=== PATIENT | female | born 1960 | race Caucasian/White ===

== ENCOUNTER 2017-07-09 04:00 | Inpatient (IN) | payer MEDICAID ==
[2017-07-09] VITALS (13 sets, daily range): BP systolic 72–183; BP diastolic 48–104; PULSE 86–108; RESP 20–36; O2SAT 90–98
[~2017-07-09] VITALS: Ht 152.4 cm; Wt 36.0 kg
--- NOTE | 2017-07-09 04:04 | ED.REPORT ---
HPI-Altered Mental Status Date of Service Jul 09, 2017 ED Provider: Ben Muniz MD Patient is a 56 year old female who presents to the ED via EMS after decreased level of consciousness with a last known normal at 2100 this evening. Per EMS, the patient has had slurred speech and was agitated. The patient's son in law denied alcohol use. Unable to obtain history due to patient's mental status. Nursing Notes Stated Complaint: DECREASED LOC Nursing Notes Reviewed: Yes General Time Seen by MD: 04:00 Chief Complaint Decreased alertness Hx Obtained From: EMS Unable to Obtain Hx: Patient condition, Mental status Arrived By: Ambulance Sudden in Onset?: Yes Onset Occurred: 1 - 4 hours ago Symptom Duration: Since onset Past Medical History Ambulatory Status Independent Review of Systems Unable to Obtain ROS Patient condition, Mental status Neurologic: Reports: Change LOC, Slurred speech Psychiatric: Reports: Agitation Complete sys rev & neg: except as marked. Physical Exam Physical Exam Notes: Limited exam due to patient's inability to participate Initial Vital Signs Vital Signs (First) Date Time Temp Pulse Resp B/P Pulse Ox O2 Delivery O2 Flow Rate FiO2 07/09/17 04:00 36.0 101 22 165/100 94 Room Air Initial VS: Reviewed, Vital signs abnormal Alertness: Positive: Somnolent Head / Eyes: Atraumatic, Normocephalic pinpoint pupils Neck: Atraumatic, Supple Respiratory / Chest: Atraumatic, No respiratory distress Heart Rate / Rhythm: Positive: Tachycardia Mental Status: Positive: Somnolent Skin: Warm, Dry Interpretation & Diagnostics Lab Results Interpretation Result Diagram: 07/09/17 0420 07/09/17 0420 Test 07/09/17 04:20 07/09/17 05:25 White Blood Count 11.7th/mm3 (3.8-10.1) Red Blood Count 4.66mil/mm3 (3.90-5.20) Hemoglobin 14.4g/dL (12.0-15.6) Hematocrit 42.0% (35.0-46.0) Mean Corpuscular Volume 90.1fL (81-100) Mean Corpuscular Hemoglobin 30.9pg (27.0-35.0) Mean Corpuscular Hemoglobin Concent 34.3% (32.0-37.0) Red Cell Distribution Width 13.4% (12.3-15.4) Platelet Count 304bil/L (150-400) Neutrophils (%) (Auto) 74.8% (40-74) Lymphocytes (%) (Auto) 16.1% (14-46) Monocytes (%) (Auto) 6.2% (4-12) Eosinophils (%) (Auto) 2.4% (0-5) Basophils (%) (Auto) 0.3% (0-3) Sodium Level 139mEq/L (134-144) Potassium Level 4.1mEq/L (3.5-5.2) Chloride Level 100mEq/L (97-108) Carbon Dioxide Level 21mmol/L (18-29) Blood Urea Nitrogen 13mg/dL (6-24) Creatinine 0.46mg/dL (0.57-1.00) Estimat Glomerular Filtration Rate 200mL/min (>59) Glucose Level 139mg/dL (60-99) Lactic Acid Level 0.8mmol/L (0.4-2.0) Calcium Level 9.2mg/dL (8.5-10.1) Magnesium Level 2.1mg/dL (1.6-2.6) Total Bilirubin 0.3mg/dL (0.0-1.2) Aspartate Amino Transf (AST/SGOT) 18U/L (0-50) Alanine Aminotransferase (ALT/SGPT) 10U/L (0-32) Alkaline Phosphatase 87U/L (25-150) Total Protein 8.5g/dL (6.4-8.4) Albumin 4.3g/dL (3.4-5.0) Salicylates Level 3.0ug/mL (30-250) Acetaminophen Level 15.0ug/mL Rx (10-25) Alcohols < 10mg/dL (0-10) Urine Color Straw (YELLOW) Urine Appearance Clear (CLEAR,HAZY) Urine pH 7.5 (5.0-8.0) Urine Specific [place] 1.010 (1.003-1.035) Urine Protein Negativemg/dL (NEG,TRACE) Urine Glucose (UA) Negativemg/dL (NEGATIVE) Urine Ketones Negativemg/dL (NEGATIVE) Urine Occult Blood Negative (NEGATIVE) Urine Nitrite Negative (NEGATIVE) Urine Bilirubin Negative (NEGATIVE) Urine Urobilinogen Normalmg/dL (NORMAL) Urine Leukocyte Esterase Negative (NEGATIVE) Urine RBC 0-2/hpf (0-2) Urine WBC 0-5/hpf (0-5) Urine Epithelial Cells Occasional/hpf (NONE-MOD) Urine Crystals Amorphous phosphates Urine Bacteria Few/hpf (NONE-FEW) Urine Hyaline Casts None/lpf (NONE) Urine Granular Casts None seen (NONE SEEN) Urine Waxy Casts None seen (NONE SEEN) Urine Red Blood Cell Casts None seen (NONE SEEN) Urine White Blood Cell Casts None seen (NONE SEEN) Urine Mucus None seen (None Seen) Urine Trichomonas None seen (NONE SEEN) Urine Yeast None (NONE SEEN) Urinalysis Comment None Urine Culture Reflexed Not indicated Lab Results Interpretation: urine tox: positive for benzodiazepines, THC and oxycodone Mildly elevated blood count ECG Interpretation Time: 04:08 Interpreted by: ED physician Abnormal Rate: 100 (104) Rhythm / Conduction: Tachycardia X-Ray Chest Interpretation Chest Xray Interpretation: no acute findings View: Portable, 1 view Interpretation / Wet Read by: Wet read ED physician CT Head Interpretation IMPRESSION: No acute intracranial findings. at 0505 Interpretation / Wet Read by: Interpret - Radiologist Re-Eval/Medical Decision Med Decision/Clinical Course 56-year-old female who was found down on the kitchen floor by her son-in-law during the night. There was no concern for illicit drug use or alcohol by the family. She is on sedating medications to include opiates and gabapentin. It is not known whether she took extra of those. There is no evidence of trauma on physical exam but obviously there is concern for head trauma as a cause of the altered level of consciousness. She has not had any hypotension or respiratory distress. Evaluation was initiated with IV access and laboratory draw. CT scan was felt immediately necessary but she remained a bit too agitated for that. She was given Versed 2 mg 2 doses with good quieting of her activity and CT scan was obtained successfully and was negative. She had some hypotension into the 80s shortly after the CT scan and her pupils were pinpoint. There still was no respiratory distress or desaturation. She was given Narcan 0.4 mg IV 2 doses with change in the pupils to mid position. Her blood pressure came up to the 140 systolic range and she was a little more activity without being agitated. Her urine drug screen showed benzos, THC, and oxycodone. We do not test for gabapentin. Her labs showed a acetaminophen level of 15. She continues the present time to maintain stable vital signs and level of consciousness. The most likely scenario is that she overused her medications to include the oxycodone, benzodiazepines (diazepam identified from the [facility] [employer]) and gabapentin. She will be admitted to the hospitalist service to the CCU for further evaluation and treatment. Consultation : Consulted With: Hospitalist Primary Care Md: Agrees with eval, Agrees with plan, Accepts admit Counseled Regarding: Diagnosis, Lab results, Need for admission Patient Discharge & Departure Impression: Primary Impression: Mental status, decreased Additional Impression: Opiate overdose Encounter type: initial encounter Injury intent: accidental or unintentional Qualified Code: T40.601A - Poisoning by unspecified narcotics, accidental (unintentional), initial encounter Disposition: ADMITTED TO HOSPITAL Discharge Condition All VS Reviewed: Yes Condition: Stable Referrals: Nik Ram MD (PCP) Crit Care Except Billable Proc Time Spent: 75-104 minutes Services Performed: Patient management by me, Time spent at bedside, Reviewing test results, Reviewing imaging, Discussing patient care, Documentation in record, Time with fam/surrogate Critical Care Notes: Polydrug overdose with unstable vital signs necessitating resuscitation and admission to the ICU. Scribe Attestation Portions of this note were transcribed by Katie Bergman. I, Dr. Muniz personally performed the history, physical exam and medical decision-making; I reviewed and confirmed the accuracy of the information in the transcribed note. Signed by Claus Arreguin, 07/09/17 copies to: Nik Ram MD, Howard L MD Jul 09, 2017 04:03 Jelena Bergman Jul 09, 2017 04:13
[2017-07-09 04:31] LABS: BASOPHILS % (AUTO) 0.3 % (0-3); EOSINOPHILS % (AUTO) 2.4 % (0-5); MONOCYTES % (AUTO) 6.2 % (4-12); Mean Corpuscular Hemoglobin 30.9 pg (27.0-35.0); Mean Corpuscular Volume 90.1 fL (81-100); NEUTROPHILS % (AUTO) 74.8 % (40-74); Platelet Count 304 bil/L (150-400)
[2017-07-09 05:25] LABS: Magnesium 2.1 mg/dL (1.6-2.6)
[2017-07-09 05:34] LABS: APPEARANCE,URINE CLEAR (CLEAR,HAZY); COLOR,URINE STRAW (YELLOW); OCCULT BLOOD,URINE NEGATIVE (NEGATIVE); PH,URINE 7.5 (5.0-8.0)
[2017-07-09 05:35] LABS: UROBILINOGEN,URINE NORMAL (NORMAL)
[2017-07-09] MEDS ORDERED: Ondansetron 2 mg/mL 2 mL Inj IVPUSH PRN ×2 (07:05→08:10)
[2017-07-09] MEDS: Dextrose 5% 0.45% NaCl 1,000 ML IV SCH ×3 (07:05→23:45)
--- NOTE | 2017-07-09 07:58 | DRSVH ---
PROCEDURE: CT BRAIN WITHOUT CONTRAST ([id number]) INDICATIONS: decreased LOC TECHNIQUE: Noncontrast 4.5 mm thick angled axial sections acquired from the foramen magnum to the vertex, with c oronal reformats. COMPARISON: None. FINDINGS: Image quality: Moderate, because of patient motion some detail is lost CSF spaces: Basal cisterns are patent. No extra-axial fluid collections. Ventricles are normal in size and shape. Brain: No midline shift. No intracranial masses or hemorrhage. Estrella-white matter interface is norm al. Skull and face: Calvarium and visualized facial bones are intact, without suspicious lesions. Sinuses: Visualized sinuses and mastoids are clear. IMPRESSION: No acute intracranial findings. Dictated by: Eliseo Medina M.D. on 07/09/2017 at 7:55 Approved by: Eliseo Medina M.D. on 07/09/2017 at 7:56 this report corresponds to the findings of the preliminary NSR report.
[2017-07-09] MEDS ORDERED: Senna-Docusate 8.6-50 mg Tablet PO PRN (08:10)
[2017-07-09] MEDS ORDERED: Polyethylene Glycol (PEG) 17 Gm Powder PO PRN (08:10)
[2017-07-09] MEDS ORDERED: Alum-Mag Hydrox-Simeth 30 mL Suspension PO PRN (08:10)
--- NOTE | 2017-07-09 08:49 | DRSVH ---
PROCEDURE: X-RAY CHEST ONE VIEW, PORTABLE ([id number]) INDICATIONS: decreased level of consciousness TECHNIQUE: One view of the chest was acquired. COMPARISON: SKYLAR [facility]ales, CHEST 2VW, 12/10/2012, 18:40. FINDINGS: Surgical changes and devices: Right midlung funmi are seen. Lungs and pleura: No pleural effusions or pneumothorax. No focal infiltrates are seen. Pulmonary p arenchymal coarsening can be seen. Mediastinum: Mediastinal contours appear normal. Heart size is normal. Bones and chest wall: Age-appropriate bony degenerative changes are seen. Mild levoconvex scoliotic curvature is noted. No suspicious bony lesions. Overlying soft tissues appear unremarkable. IMPRESSION: No acute cardiopulmonary process is seen. Postoperative change of the right midlung. Dictated by: Tom Zheng M.D. on 07/09/2017 at 8:46 Approved by: Tom Zheng M.D. on 07/09/2017 at 8:47
[2017-07-09] MEDS: Heparin 5,000 Unit/mL Inj SUBQ SCH ×3 (09:27→22:57)
[2017-07-09] MEDS: 0.9% Sodium Chloride 1,000 ML IV SCH ×3 (09:28→22:56)
--- NOTE | 2017-07-09 09:49 | NUR ---
Nursing Admission. From ED to CCU #2012 at 0730 via gurney, no family at bedside. Impulsive, combative, with completely garbled speech. Blood pressures continue to be labile, and highly variable. Placed on 1L/NC 02 with good effect for RA sats of 90-91%. Does not appears short of breath, but respiratory rate is variable from 24-36, respirations shallow. No cough noted. Voiding using bedpan with assist. Family arrived, updated, appear supportive. Calm and sleeping at this time.
[2017-07-09] MEDS: Albuterol-Ipratropium 3 mL Inhalation Solution NEB SCH ×4 (13:23→23:55)
[2017-07-09] MEDS ORDERED: Albuterol-Ipratropium 3 mL Inhalation Solution NEB PRN (13:30)
--- NOTE | 2017-07-09 13:34 | PCM.HPMED ---
Subjective Date of Service Jul 09, 2017 Primary Provider: Admitting Physician: Donna Peralta DO Primary Care Physician: Nik Ram MD Attending Physician: Donna Peralta DO Admit Status: From the Emergency Department, Admit to [facility] Team, Critical Care Chief Complaint: Altered Mental State History of Present Illness: Ms. Carrasco is a 56 year old female who presented to the ED via EMS after being found down on the kitchen floor at ~0300 on 07/09/2017. Her last known normal was at 2100 hrs the night before. She was reportedly staying the night at her daughters house to watch her grandchildren. When Pt's son in law returned home from work he found Pt down on the kitchen floor. She was reportedly arousable to stimulation with accompanied agitation and slurred speech. At time of interview Pt's son present in the room. He states that she has had difficulty with substance use in the past, including prescription pill use. He states that she is not currently prescribed any narcotic pain medication as she has had difficulty using this medication responsibly in the past. Though she is currently prescribed Klonopin and gabapentin. In the emergency room CT brain showed no acute intracranial findings though patient required sedation with Versed to complete the study, CXR showed no acute cardiopulmonary process. Lab values unremarkable excepting a white count of 11.7. Alcohol level less than 10, acetaminophen and salicylate levels normal. Urine tox was positive for benzodiazepine, THC and oxycodone. Patient was hypotensive in the ED with pinpoint pupils and responded well to Narcan 2 doses. Patient admitted to CCU later stepdown to [facility] vital signs have remained stable. Review of Systems: Review of systems unable to be obtained secondary to Pt current decreased level of consciousness Allergies Coded Allergies: methocarbamol (Verified Allergy, Unknown, 07/09/17) found on md records, patient denies this allergy morphine (Verified Allergy, Unknown, 07/09/17) found on md records, patient denies. also reported per patient pharmacy oxycodone (Verified Allergy, Unknown, 07/09/17) found on md records, patient denies Home Medications Pt's son reports Gabapentin, Clonapin and unknown HTN med. Awaiting Med Rec PMH Per last outpatient record at urgent care dated 03/25/2016 problem list includes : Degenerative disc disease of lumbar spine Chronic neck pain Left shoulder chronic pain Chronic back pain COPD Asthma Hypertension History of lung cancer Surgical History No record of surgical history Family History Per outpatient records: Father age 65 lung cancer Mother: Renal disease Social History Hx Alcohol Use: Yes Hx Substance Use: Yes Hx Tobacco Use: Yes Smoking Status: Unknown if Ever Smoker Living Arrangement: Alone Exam Vital Signs Vital Sign - Last Date Time Temp Pulse Resp B/P Pulse Ox O2 Delivery O2 Flow Rate FiO2 07/09/17 07:16 36.1 104 22 92/48 98 Room Air Exam General: Extremely thin and frail chronically ill-appearing somnolent female who appears older than stated age. Arousable to voice. Noncoherent/slurred speech. HEENT: Normocephalic, atraumatic. Pupils 3 mm equal, round, and reactive to light and accommodation. Anicteric sclerae, moist conjunctivae, and no lid lag. Oropharynx with moist mucosa, poor dentition - missing teeth Neck: No jugular venous distension. No bruits. Cardiovascular: Tachycardic rate with regular rhythm with no murmurs appreciated Pulmonary: Clear to auscultation bilaterally with no crackles, wheezes, or rhonchi. Normal respiratory effort with no use of accessory muscles. Tachypnea Abdomen: Soft, tender to palpation, nondistended. Extremities: No clubbing, cyanosis. Cachectic limbs Skin: Normal temperature, poor skin turgor. Neurological: Somnolent, arousable to voice. Attempts to answer questions and will follow commands though difficult to understand speech. Lab and Diagnostics Result Diagram: 07/09/1741907/09/17419 X-Rays, CTs and MRIs . X-RAY CHEST ONE VIEW, PORTABLE IMPRESSION: No acute cardiopulmonary process is seen. Postoperative change of the right midlung. Dictated by: Tom Zheng M.D. on 07/09/2017 CT BRAIN WITHOUT CONTRAST IMPRESSION: No acute intracranial findings. Dictated by: Eliseo Medina M.D. on 07/09/2017 Additional Diagnostics: urine tox: positive for benzodiazepines, THC and oxycodone Assessment & Plan Ms. Carrasco is a 56 year old female with PMH of... Acute encephalopathy. POA. Ongoing -Most likely secondary to poly-pharmacy overdose. She responded to narcan x 2 in the ED -Urine tox was positive for benzodiazepines, THC and oxycodone -Telemetry -Supplomental O2 to maintain saturations above 92% -Continue to monitor respiratory status Severe Protein calorie malnutrition. Present on admission. Under evaluation -Per family this is a chronic condition -Currently NPO secondary to LOC -Nutrition consult -IVF 125 mL per hour Hypergylcemia. POA. Under evaluation -Possibly secondary to a stress reaction -A1c pending -Continue to monitor COPD exacerbation. POA. Ongoing -Duo nebs when necessary -Azithromycin 500mg QD - Prednisone 50mg QD Hypertension. Not present on admission. Presumed stable Awaiting med rec Initiate antihypertensive medications with appropriate Polysubstance abuse - Continue to monitor Nicotine Dependence -Nicotine patch prn Patient Status: Patient was admitted under inpatient status with expected length of stay greater than two midnights due to severity of presenting symptoms , risk of adverse event, and complexity of treatment plan. Discussed CODE STATUS with patient's son who is also POA. Patient wishes to be full code GI Prophylaxis: H2 apryl VTE Prophylaxis: Sub-Q Heparin (Unfractionated) Resuscitation Status: CPR: Attempt Resuscitation Time spent greater than 45 minutes Attending Statement The patient was seen and examined together with Dr. Galicia on 07/09/17 and I have added additional information to the note above. JAYLAN GALICIA DO Jul 09, 2017 08:15 Ananya Bradley DO Jul 10, 2017 20:54
--- NOTE | 2017-07-09 15:14 | NUR ---
Evaluation completed. Please go to "Notes" then click on "Assessments and Notes" (bottom left corner of screen). Then select appropriate discipline tab on top of screen.
[2017-07-09] MEDS: predniSONE 20 mg Tablet PO SCH (15:15)
[2017-07-09] MEDS ORDERED: LISI10TA PO (16:06)
[2017-07-09] MEDS ORDERED: ALBU2.5V4 INH (16:06)
[2017-07-09] MEDS ORDERED: ALBU8.5H2 IH (16:06)
[2017-07-09] MEDS ORDERED: GABA-502 PO (16:06)
[2017-07-09] MEDS ORDERED: AMLO10TA3 PO (16:06)
[2017-07-09] MEDS ORDERED: HYDR-3740 PO (16:06)
--- NOTE | 2017-07-09 16:30 | NUR ---
Improved mental status throughout the shift, now alert and conversing appropriately and clearly. Speech therapy evaluated, taking general diet without incident, appetite good. Less impulsive, using call light appropriately. Hypotension resolved, now hypertensive. Voiding frequently in small amounts, 12x this shift; UOP 1050ml/12 hrs. IVFs infusing. Afebrile. Sinus rhythm on tele. Placed on 1L for RA sats of 89-91%. Moist cough noted, no sputum observed. Episode of shortness of breath relieved by neb tx. Supportive family at bedside.
[2017-07-09] MEDS ORDERED: _Albuterol 2.5 mg/3 mL Neb NEB PRN (17:30)
[2017-07-09] MEDS ORDERED: Albuterol 2.5 mg/3 mL Inhalation Solution NEB PRN (17:39)
[2017-07-10] VITALS (8 sets, daily range): BP systolic 113–168; BP diastolic 72–76; PULSE 74–102; RESP 20–25; O2SAT 90–95
[2017-07-10] MEDS: 0.9% Sodium Chloride 1,000 ML IV SCH (01:52)
[2017-07-10 03:28] LABS: BASOPHILS % (AUTO) 0.1 % (0-3); EOSINOPHILS % (AUTO) 0 % (0-5); MONOCYTES % (AUTO) 5.8 % (4-12); Mean Corpuscular Hemoglobin 30.3 pg (27.0-35.0); Mean Corpuscular Volume 93.7 fL (81-100); NEUTROPHILS % (AUTO) 80.3 % (40-74); Platelet Count 278 bil/L (150-400)
[2017-07-10] MEDS: Albuterol-Ipratropium 3 mL Inhalation Solution NEB SCH ×3 (03:58→12:19)
--- NOTE | 2017-07-10 04:28 | NUR ---
Agitation/ Pain/ IVF Start of NOC shift pt agitated and states she is leaving- Dr. Mclaughlin to room to talk with pt. Pt agreeing to stay- Restoril and Nicotine patch ordered by . Pt given meds in addition to Tylenol for c/o chronic neck pain. Pt still awake a few hours later, requesting additional more Tylenol- only 3 hrs past since last Tylenol given. Dr. Mclaughlin made aware- 1x order received for Ultram- med given with good results- pt sleeping comfortably for 5+ hours. Pt drinking and voiding large amounts in addition NS infusing @125- Dr. Mclaughlin made aware- NS D/C. Pt states she has to "Be honest with us" in regards to what she took prior to coming to the hospital. Pt states she has been having difficulty sleeping latley so her friend gave her Klonopin 50mg and 100mg. she claims the last thing she remembers is taking the 50mg of Klonopin, and is unsure if she took the 100mg. - notified.
[2017-07-10] MEDS: predniSONE 20 mg Tablet PO SCH (08:27)
[2017-07-10] MEDS: Heparin 5,000 Unit/mL Inj SUBQ SCH (08:28)
--- NOTE | 2017-07-10 11:06 | NUR ---
Social Work: Initial Assessment/Multidisciplinary Rounds D: Per EMR review, patient is a 56 year old female admitted for Altered LOC opiode OD. Patent is [facility] medicaid with no LTC or VA benefits. PCP is Nik Ram MD. NOK is Barbara Carrasco, dtr, . Advanced directive information provided to patient. Readmit score is high, 4/8. Pt discussed in Multidisciplinary rounds. Capacity for self care discussed; patient is capable of self care. Patient unintentionally overdosed on prescription medications. Patient had reportedly taking some of her friends medication in addition to her own not knowing the effect it would have. Patient may benefit from some outpatient counseling for substance use. COLLETER has requested order to complete assessment with patient. COLLETER met with the patient at bedside. Social work/dcp role explained, contact information and discharge planning checklist provided. See initial assessment. Patient lives in a ground level apartment in [place]. The patient states that she does not drive and relies on her caregivers to transport her. Patient has 60 hours of [employer] caregiving who come on MWF between 9- to assist with meals, groceries, transport to appointments and bathing. The patient states that they do not assist her with medication management and does not feel she needs this extra help. COLLETER explored the patient's accidental overdose in which she states that she did not know "that this would happen." She expresses remorse and declined any need for ongoing support or services. Pt denied this was any attempt at self-harm or suicide. Patient has never had HH or skilled rehab. Other than the care she receives from her caregivers she is otherwise I. Patient uses a 4WW at home and anticipates discharge back home when medically stable. She does not feel that supportive services from any home health would help her at discharge. A: pt who is I at baseline. P: Anticipate pt to discharge home with her daughter, Racheal, to transport. COLLETER to continue to follow to assess for unmet sw needs. FRANCISCA Carr Addendum: 07/10/17 at 1121 by MATIAS HUGGINS SS Amended: Links added. Addendum: 07/10/17 at 1438 by MATIAS HUGGINS SS CM order received to complete CD assessment. FRANCISCA acknowledges order. FRANCISCA met with the patient again to explore accidental overdose. Patient states that she was having issues with sleeping and her friend offered her a Klonopin. She continues to decline resources for outpatient counseling and states that she is going to follow up with her PCP about her sleep issues. Pt declined to participate with full CD assessment No SI/HI and is not gravely disabled due to mental illness.
[2017-07-10] MEDS ORDERED: Ketorolac 15 mg/mL Inj IVPUSH PRN (11:10)
[2017-07-10] MEDS: Dextrose 5% 0.45% NaCl 1,000 ML IV SCH (12:57)
[2017-07-10] MEDS ORDERED: PRED-508 PO ×2 (13:06→13:44)
[2017-07-10] MEDS ORDERED: ZIT250 PO ×2 (13:06→13:44)
--- NOTE | 2017-07-10 13:20 | PCM.DIMED ---
Marcello Roman DO 07/10/17 1313: Discharge Instructions Date of Service Jul 10, 2017 Dates of Hospitalization Jul 09, 2017 at 06:57 Discharge Diagnosis Discharge Diagnosis Medication Overdose (Klonopin) Medication Instructions Additional med instructions We have given you a 5 day course of Mucinex, Prednisone and Azithromycin. Please take these as prescribed until they are gone. Please also continue to take your other home medications as prescribed. Test Results Test Results Your CT scan did not show any brain injury Diet Discharge Diet: No restrictions Activity Discharge Activity: Limited until seen by PCP Call your provider Call your provider for: Fever or Chills, Shortness of breath, Bleeding, Chest pain, Vomitting, Excessive diarrhea, Weakness (unilateral) Patient Instructions Patient Instructions Please followup with you doctor in 1-2 weeks. We recommend that you avoid taking any prescriptions that are not yours, and take your prescribed medications only as directed. It is also important that you try to quit smoking , as your lungs are not healthy. It was nice meeting you, take care. Follow-up Provider: Nik Ram MD Follow-up with PCP in: 1 week Provider: Nik Ram MD, Precious L DO 07/10/17 1614: Discharge Instructions Attending's Statement The patient was seen and examined together with Dr. Roman on 07/10/17 and I agree with the history, exam and plan as outlined in the note above. Marcello Roman DO Jul 10, 2017 13:13 Ananya Bradley DO Jul 10, 2017 16:14
[2017-07-10] MEDS ORDERED: GUAI600T2 PO ×2 (13:29→13:46)
--- NOTE | 2017-07-10 13:39 | PCM.DC.MED ---
Discharge Summary Date of Service Jul 10, 2017 Dates of Hospitalization Date of Hospital Admission Jul 09, 2017 at 06:57 Date of Discharge: Jul 10, 2017 Providers: Admitting Physician: Donna Peralta DO Primary Care Physician: Nik Ram MD Attending Physician: Donna Peralta DO Diagnosis at Time of Discharge Diagnosis at Time of Discharge Medication Overdose (Klonopin) COPD exacerbation Severe protein calorie malnutrition Hyperglycemia Hypertension Procedures XRay, CTs & MRIs . X-RAY CHEST ONE VIEW, PORTABLE IMPRESSION: No acute cardiopulmonary process is seen. Postoperative change of the right midlung. Dictated by: Tom Zheng M.D. on 07/09/2017 CT BRAIN WITHOUT CONTRAST IMPRESSION: No acute intracranial findings. Dictated by: Eliseo Medina M.D. on 07/09/2017 ECG 12 Lead Sinus tachycardia, heart rate 104, QTC 428 Other Diagnostics urine tox: positive for benzodiazepines, THC and oxycodone Brief History Ms. Carrasco is a 56 year old female with a past medical history of COPD, hypertension, chronic pain, diabetes, substance abuse who presented to the ED via EMS after being found down on the kitchen floor at ~0300 on 07/09/2017. Her last known normal was at 2100 hrs the night before. She was reportedly staying the night at her daughters house to watch her grandchildren. When Pt's son in law returned home from work he found Pt down on the kitchen floor. She was reportedly arousable to stimulation with accompanied agitation and slurred speech. After arrival to the ED patient received 2 doses of Narcan, with good response. She underwent a CT of the brain that did not show any acute intracranial processes. Her EKG was unremarkable. Patient was admitted for unintentional opioid overdose. Nasal swab for MRSA was negative. The patient stayed overnight and her mentation cleared, however she did have an exacerbation of COPD. She was started on azithromycin and prednisone and responded well to treatment. She is no longer using 2 L O2 on nasal cannula and is now on room air. She is alert and oriented 3, her mentation is significantly improved and feels ready to go home. Patient is being discharged home in stable condition to finish her azithromycin and prednisone course for her COPD exacerbation. Patient was instructed to follow-up with her PCP in 1-2 weeks, and not to take any medication that is not prescribed to her. We also talked to her about the importance of smoking cessation due to her lung health. She stated that she will continue her smoking cessation efforts with nicotine patches and lozenges. Hospital Course See below for detailed hospital course. Encephalopathy secondary to polysubstance abuse, present on admission, resolved -Most likely secondary to poly-pharmacy overdose. She responded to narcan x 2 in the ED -Urine tox was positive for benzodiazepines, THC and oxycodone -Telemetry -Supplomental O2 to maintain saturations above 92% -Mentation has returned to baseline -Patient is opioid dependent Severe Protein calrorie malnutrition. Present on admission. Under evaluation -Per family this is a chronic condition -Currently NPO secondary to LOC -Nutrition consult -IVF 125 mL per hour discontinued at 4 AM 07/10/2017 Hypergylcemia. POA. Under evaluation -Possibly secondary to a stress reaction -A1c 5.5 -Continue to monitor COPD. POA. Ongoing Duo nebs when necessary Hypertension. Not present on admission. Presumed stable Awaiting med rec Initiate antihypertensive medications with appropriate Discussed CODE STATUS with patient's son who is also POA. Patient wishes to be full code Exam Vital Signs (Last) Date Time Temp Pulse Resp B/P Pulse Ox O2 Delivery O2 Flow Rate FiO2 07/10/17 12:21 82 20 92 Room Air 07/10/17 12:09 36.7 113/72 07/09/17 13:25 1.00 Exam General: No acute distress, cachectic appearing HEENT: Normocephalic, atraumatic. External ears without defect. Pupils equal, round, and reactive to light and accommodation. Anicteric sclerae, moist conjunctivae. Neck: Supple with full range of motion. No jugular venous distension. No bruits. Cardiovascular: Regular rate and rhythm with no murmurs, rubs, or gallops appreciated Pulmonary: Rhonchorous breath sounds throughout, good air movement. Abdomen: Bowel tones present. Soft, nontender, nondistended. No hepatosplenomegaly or masses appreciated. Extremities: No clubbing, cyanosis, edema, or lymphadenopathy appreciated. Skin: Normal temperature, turgor, and texture; no rash, ulcers, or subcutaneous nodules appreciated. Neurological: Cranial nerves grossly intact. Normal muscle strength, tone, and bulk. Reflexes, coordination, and sensory function within normal limits. No known gait impairment. Psychiatric: Normal mood and affect. Alert and oriented to person, place, and time. Test 07/09/17 04:20 07/09/17 05:25 07/10/17 03:10 Hemoglobin A1c 5.5% (4.8-5.6) Lactic Acid Level 0.8mmol/L (0.4-2.0) Magnesium Level 2.1mg/dL (1.6-2.6) Lipase 56U/L (13-60) Salicylates Level 3.0ug/mL (30-250) Acetaminophen Level 15.0ug/mL Rx (10-25) Alcohols < 10mg/dL (0-10) Urine Color Straw (YELLOW) Urine Appearance Clear (CLEAR,HAZY) Urine pH 7.5 (5.0-8.0) Urine Specific [place] 1.010 (1.003-1.035) Urine Protein Negativemg/dL (NEG,TRACE) Urine Glucose (UA) Negativemg/dL (NEGATIVE) Urine Ketones Negativemg/dL (NEGATIVE) Urine Occult Blood Negative (NEGATIVE) Urine Nitrite Negative (NEGATIVE) Urine Bilirubin Negative (NEGATIVE) Urine Urobilinogen Normalmg/dL (NORMAL) Urine Leukocyte Esterase Negative (NEGATIVE) Urine RBC 0-2/hpf (0-2) Urine WBC 0-5/hpf (0-5) Urine Epithelial Cells Occasional/hpf (NONE-MOD) Urine Crystals Amorphous phosphates Urine Bacteria Few/hpf (NONE-FEW) Urine Hyaline Casts None/lpf (NONE) Urine Granular Casts None seen (NONE SEEN) Urine Waxy Casts None seen (NONE SEEN) Urine Red Blood Cell Casts None seen (NONE SEEN) Urine White Blood Cell Casts None seen (NONE SEEN) Urine Mucus None seen (None Seen) Urine Trichomonas None seen (NONE SEEN) Urine Yeast None (NONE SEEN) Urinalysis Comment None Urine Culture Reflexed Not indicated White Blood Count 9.7th/mm3 (3.8-10.1) Red Blood Count 3.99mil/mm3 (3.90-5.20) Hemoglobin 12.1g/dL (12.0-15.6) Hematocrit 37.4% (35.0-46.0) Mean Corpuscular Volume 93.7fL (81-100) Mean Corpuscular Hemoglobin 30.3pg (27.0-35.0) Mean Corpuscular Hemoglobin Concent 32.4% (32.0-37.0) Red Cell Distribution Width 13.3% (12.3-15.4) Platelet Count 278bil/L (150-400) Neutrophils (%) (Auto) 80.3% (40-74) Lymphocytes (%) (Auto) 13.6% (14-46) Monocytes (%) (Auto) 5.8% (4-12) Eosinophils (%) (Auto) 0% (0-5) Basophils (%) (Auto) 0.1% (0-3) Sodium Level 143mEq/L (134-144) Potassium Level 3.9mEq/L (3.5-5.2) Chloride Level 109mEq/L (97-108) Carbon Dioxide Level 20mmol/L (18-29) Blood Urea Nitrogen 13mg/dL (6-24) Creatinine 0.42mg/dL (0.57-1.00) Estimat Glomerular Filtration Rate 222mL/min (>59) Glucose Level 98mg/dL (60-99) Calcium Level 9.0mg/dL (8.5-10.1) Total Bilirubin 0.3mg/dL (0.0-1.2) Aspartate Amino Transf (AST/SGOT) 11U/L (0-50) Alanine Aminotransferase (ALT/SGPT) 7U/L (0-32) Alkaline Phosphatase 73U/L (25-150) Total Protein 6.9g/dL (6.4-8.4) Albumin 3.7g/dL (3.4-5.0) Discharge Medications Discharge Medications Amlodipine (Amlodipine) 10 Mg Tablet 10 MG PO DAILY (Reported) Azithromycin (Zithromax) 250 Mg Tablet 500 MG PO DAILY Prescribed by: RAJ HARRIS DO Gabapentin (Gabapentin) 300 Mg Capsule 300 MG PO QID (Reported) Lisinopril (Lisinopril) 10 Mg Tablet 10 MG PO DAILY (Reported) Prednisone (Deltasone) 20 Mg Tablet 40 MG PO DAILY Prescribed by: RAJ HARRIS DO As needed Albuterol HFA (Proair HFA) 8.5 Gm Hfa.aer.ad 2 PUFFS IH QID PRN PRN For Shortness of Breath (Reported) Albuterol Neb Soln (Albuterol Neb Soln) 2.5 Mg/3 Ml Vial.neb 3 ML INH q6 hours PRN PRN For Shortness of Breath (Reported) Guaifenesin (Mucinex) 600 Mg Tablet.er 600 MG PO BID PRN PRN For Cough Prescribed by: RAJ HARRIS DO Hydrocodone-Acetaminophen 10-325 mg (Hydrocodone-Acetaminophen 10-325 mg) 1 Each Tablet 1 TAB PO q12 hours PRN PRN For Pain (Reported) Additional med instructions We have given you a 5 day course of Mucinex, Prednisone and Azithromycin. Please take these as prescribed until they are gone. Please also continue to take your other home medications as prescribed. Followup Plan Disposition: Home Follow-up plan Follow-up with PCP in 1-2 weeks. Discharge Diet: No restrictions Discharge Activity: Limited until seen by PCP Patient Instructions Please followup with you doctor in 1-2 weeks. We recommend that you avoid taking any prescriptions that are not yours, and take your prescribed medications only as directed. It is also important that you try to quit smoking , as your lungs are not healthy. It was nice meeting you, take care. Follow-up Provider: Nik Ram MD Follow-up with PCP in: 1 week (if an appointment has not been made please call to schedule an appointment) Provider: Nik Ram MD Time spent Greater than 35 minutes Attending Statement The patient was seen and examined together with Dr. Harris on 07/10/17 and I have added additional information to the note above. copies to: Nik Ram MD, Aaron C DO Jul 10, 2017 13:39 Ananya Bradley DO Jul 10, 2017 16:29
--- NOTE | 2017-07-10 13:40 | NUR ---
NUTRITION ASSESSMENT: ASSESS: Pt is a 56yo F admitted for altered LOC secondary to poly-pharmacy overdose. Pt reported that she has had about 20lb wt loss [id number]. Her reported UBW is ~100lbs. Pt has had 22% wt loss x 6 months= significant wt loss. Pt stated that her appetite has been minimal and she typically eats on 1 meal/ day. She reports that she has a lot of chronic pain and the pain makes her not hungry. PMHX: COPD, HTN, lung ca, chronic pain LABS: Reviewed. 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 GI: 0 BM SKIN: visible fat and muscle loss CURRENT WTS: 36kg, BMI 15.5kg/m2, UBW: 46kg, IBW 45.5kg. 22% wt loss x 6 months= significant wt loss DIET: General EST. NEEDS: wt gain Kcals: 1080-1260kcal/day (30-35kcal/kg) Pro: 55-70g/day (1.2-1.5g/kg IBW) NUTRITION DIAGNOSIS: 1.) Severe pro/kcal malnutrition in the context of chronic disease related to chronic pain as evidence by BMI of 15.5kg/m2, reported 22% wt loss x 6 months and PO intake <75% of estimated energy requirement for >1 month. NUTRITION INTERVENTION: 1.) Spoke with pt about her wt loss. Discussed trying to increase kcal/pro intake with each bite and eating smaller more frequent meals, rather than trying to eat 1-2 large meals. Provided handout that reviews high kcal and high pro foods and provided high kcal/pro recipe book. Pt stated that she has a caregiver who will be coming 3 days a week to help her out. Encouraged pt to show the recipe book to the caregiver and have her help make meals. Pt also has meals on wheels so encouraged pt to try to eat both meals that she gets every day to make sure she is eating enough. Pt verbalized understanding. MONITOR / EVAL: wt, PO intake, labs, gi, POC, nutrition status. Will continue to monitor per high nutrition risk guidelines.
--- NOTE | 2017-07-10 13:55 | NUR ---
Discharge Patient D/Cd home in stable condition. MD/follow up and med instructions discussed with patient, no questions at this time. Rx hard copies given to pt, copies in chart. TELE and PIV D/Cd on pt. Pt home with daughter
== END 2017-07-10 14:39 | disposition home or self-care (01) | DRG 917 ==
LOC: SED 04:00 → CCU 06:57 → PCC 10:00
PROVIDERS: ADMIT Internal Medicine; ATTEND Internal Medicine
DX: T42.4X1A Poisoning by benzodiazepines, accidental (unintentional), initial encounter (principal); G92 Toxic encephalopathy; E43 Unspecified severe protein-calorie malnutrition; Z68.1 Body mass index [BMI] 19.9 or less, adult; J44.1 Chronic obstructive pulmonary disease with (acute) exacerbation; F11.10 Opioid abuse, uncomplicated; T40.2X1A Poisoning by other opioids, accidental (unintentional), initial encounter; T40.7X1A Poisoning by cannabis (derivatives), accidental (unintentional), initial encounter; I10 Essential (primary) hypertension; R73.9 Hyperglycemia, unspecified; F17.200 Nicotine dependence, unspecified, uncomplicated; Z85.118 Personal history of other malignant neoplasm of bronchus and lung; G89.29 Other chronic pain; F12.10 Cannabis abuse, uncomplicated; F19.10 Other psychoactive substance abuse, uncomplicated